=== PATIENT | female | born 1945 | race Caucasian/White ===

== ENCOUNTER 2022-11-22 20:06 | Inpatient (IN) ==
--- NOTE | 2022-11-22 21:03 | Emergency Department Note ---
History of Present Illness General Chief complaint: Shortness of Breath/Dyspnea Stated complaint: SORE RIBS, SOB, LOW OXYGEN, BLOODTHINNERS Time Seen by Provider: 11/22/22 20:41 Source: patient, family (Daughter who is at the bedside), RN notes reviewed and old records reviewed (I did review records she had from the [facility]/outside hospital) Mode of arrival: ambulatory Limitations: no limitations History of Present Illness Maximum Pain Intensity: 4 This patient is a 77-year-old female who has a history of CHF A-fib and COPD, comes in after feeling like her ribs are sore bilaterally she is short of breath . She flew here about a week ago to be with her daughters she is from [place]. She does not typically take inhalers. She says it is mostly dyspnea on exertion she got very lightheaded like she might pass out today after walking she can walk very small amounts before she gets very short of breath. No cough no pleurisy no nausea vomiting no fever or chills she does have chronic lower extremity edema left greater than right which is unchanged from baseline. She does take Lasix and spironolactone. She had a recent echo prior to having cataract surgery and was told that it looked okay. 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 No fall or trauma Home Medications Medication Instructions Recorded Confirmed Type carvedilol 25 mg tablet 25 mg PO BID 11/22/22 11/22/22 History dabigatran etexilate 150 mg 150 mg PO BID 11/22/22 11/22/22 History capsule (Pradaxa) furosemide 40 mg tablet 40 mg PO DAILY 11/22/22 11/22/22 History losartan 50 mg tablet 50 mg PO BID 11/22/22 11/22/22 History spironolactone 25 mg tablet 25 mg PO DAILY 11/22/22 11/22/22 History Allergies Allergy/AdvReac Type Severity Reaction Status Date / Time amiodarone Allergy Severe SHORTNESS Verified 11/22/22 20:39 OF BREATH lisinopril AdvReac Intermediate Cough Verified 11/22/22 20:39 Past Med/Surg History Social History Smoking Status: Former smoker Preferred Language: Occitan Feels Safe at Home: Yes Review of Systems A total of 10 systems reviewed and were otherwise negative Physical Exam Vital Signs Vital Signs - 24 hr 11/22/22 20:11 11/22/22 20:27 11/22/22 20:36 Temperature 35.7 C L Temperature Source Temporal Artery Scan Pulse Rate 76 110 H Pulse Rate [Finger] Pulse Rate from SpO2 Sensor Respiratory Rate 18 Respiratory Effort / Characteristics Non-Labored Spontaneous Respiratory Depth Normal Respiratory Pattern Regular Blood Pressure 119/72 Blood Pressure [Left Arm] Blood Pressure Mean 87 Blood Pressure Mean [Left Arm] Pulse Oximetry 92 93 Oxygen Delivery Method Room Air Room Air Oxygen Flow Rate 0 Sepsis Recent Fever Within 48 Hours No Sepsis New/Unexplained Change in Mental Status No Sepsis Action Taken by Nursing No Action Required 11/22/22 20:29 11/22/22 20:30 11/22/22 20:30 Temperature Temperature Source Pulse Rate 70 70 Pulse Rate [Finger] Pulse Rate from SpO2 Sensor 70 70 Respiratory Rate 15 19 Respiratory Effort / Characteristics Respiratory Depth Respiratory Pattern Blood Pressure 126/98 Blood Pressure [Left Arm] Blood Pressure Mean 105 Blood Pressure Mean [Left Arm] Pulse Oximetry 91 92 Oxygen Delivery Method Oxygen Flow Rate Sepsis Recent Fever Within 48 Hours Sepsis New/Unexplained Change in Mental Status Sepsis Action Taken by Nursing 11/22/22 20:58 11/22/22 20:40 11/22/22 20:50 Temperature Temperature Source Pulse Rate 141 H 70 Pulse Rate [Finger] Pulse Rate from SpO2 Sensor 70 70 Respiratory Rate 15 15 Respiratory Effort / Characteristics Respiratory Depth Respiratory Pattern Blood Pressure Blood Pressure [Left Arm] Blood Pressure Mean Blood Pressure Mean [Left Arm] Pulse Oximetry 98 93 93 Oxygen Delivery Method Room Air Oxygen Flow Rate Sepsis Recent Fever Within 48 Hours Sepsis New/Unexplained Change in Mental Status Sepsis Action Taken by Nursing 11/22/22 21:00 11/22/22 21:00 11/22/22 21:10 Temperature Temperature Source Pulse Rate 80 70 Pulse Rate [Finger] Pulse Rate from SpO2 Sensor 70 70 Respiratory Rate 24 15 Respiratory Effort / Characteristics Respiratory Depth Respiratory Pattern Blood Pressure 113/73 Blood Pressure [Left Arm] Blood Pressure Mean 89 Blood Pressure Mean [Left Arm] Pulse Oximetry 93 93 Oxygen Delivery Method Oxygen Flow Rate Sepsis Recent Fever Within 48 Hours Sepsis New/Unexplained Change in Mental Status Sepsis Action Taken by Nursing 11/22/22 21:20 11/22/22 21:30 11/22/22 21:30 Temperature Temperature Source Pulse Rate 84 70 Pulse Rate [Finger] Pulse Rate from SpO2 Sensor 70 70 Respiratory Rate 15 15 Respiratory Effort / Characteristics Respiratory Depth Respiratory Pattern Blood Pressure 116/82 Blood Pressure [Left Arm] Blood Pressure Mean 90 Blood Pressure Mean [Left Arm] Pulse Oximetry 93 93 Oxygen Delivery Method Oxygen Flow Rate Sepsis Recent Fever Within 48 Hours Sepsis New/Unexplained Change in Mental Status Sepsis Action Taken by Nursing 11/22/22 21:40 11/22/22 21:50 11/22/22 22:00 Temperature Temperature Source Pulse Rate 78 70 Pulse Rate [Finger] Pulse Rate from SpO2 Sensor 71 70 Respiratory Rate 16 15 Respiratory Effort / Characteristics Respiratory Depth Respiratory Pattern Blood Pressure 109/74 Blood Pressure [Left Arm] Blood Pressure Mean 86 Blood Pressure Mean [Left Arm] Pulse Oximetry 91 92 Oxygen Delivery Method Oxygen Flow Rate Sepsis Recent Fever Within 48 Hours Sepsis New/Unexplained Change in Mental Status Sepsis Action Taken by Nursing 11/22/22 22:00 11/22/22 22:10 11/23/22 00:02 Temperature Temperature Source Pulse Rate 70 70 Pulse Rate [Finger] 70 Pulse Rate from SpO2 Sensor 70 70 Respiratory Rate 15 16 18 Respiratory Effort / Characteristics Respiratory Depth Respiratory Pattern Blood Pressure Blood Pressure [Left Arm] 114/71 Blood Pressure Mean Blood Pressure Mean [Left Arm] 85 Pulse Oximetry 93 92 92 Oxygen Delivery Method Room Air Oxygen Flow Rate Sepsis Recent Fever Within 48 Hours Sepsis New/Unexplained Change in Mental Status Sepsis Action Taken by Nursing General: Well developed well nourished older female who appears in no acute distress, breathing comfortably on room air. Normal speech HEENT: Normal cephalic atraumatic. Pupils are equal round and reactive to light. Extraocular movements are intact. Oropharynx is pink with moist mucous membranes. No swelling of the mouth lips or tongue. Neck: Supple with a midline trachea. No meningeal signs or stiffness, no JVD or bruits. No Stridor. Chest: Clear to auscultation bilaterally. No wheezes or rhonchi. No increased work of breathing. Heart: Irregularly irregular rate and rhythm without murmurs or gallops. Abdomen: Soft nontender, nondistended without rebound guarding or rigidity. Extremities: She does have bilateral lower extremity edema, left slightly greater than right. This is baseline according to the patient. She is wearing compression hose. No calf tenderness or assymetry Spine/Back. Non tender to palpation. No CVA tenderness Skin: Good turgor without rashes. Neurologic exam: Cranial nerves two through 12 are intact. Motor and sensation are intact and symmetrical throughout. Course Administered Medications Discontinued Medications Furosemide (Furosemide Inj 20 Mg/2 Ml Vial) 20 mg IV ONE ONE Stop: 11/22/22 22:30 Last Admin: 11/22/22 22:36 Dose: 20 mg Documented By: [facility] Medical Decision Making Differential Diagnosis Acute coronary syndrome, CHF, arrhythmia, anemia, DVT, pneumothorax, pneumonia, COVID Medical Records Attestation: I reviewed the patient's medical records. Home Medications Current Medication List: was personally reviewed by me Laboratory Data Attestation: I reviewed the patient's lab results. 11/22/22 20:35 11/22/22 20:35 Lab Results 11/22/22 11/22/22 11/22/22 Range/Units 20:35 20:35 20:35 WBC 3.13 L (4.8-10.8) K/ul RBC 3.28 L (4.20-5.40) M/uL Hgb 11.6 L (12.0-16.0) g/dl Hct 35.0 L (37.0-47.0) % MCV 106.7 H (80.0-100.0) fL MCH 35.4 H (25.0-34.0) pg MCHC 33.1 (32.0-36.0) g/dL RDW Std Deviation 55.3 H (36.4-46.3) fL RDW Coeff of Patito 14.1 (11.5-14.5) % Plt Count 189 (130-400) K/uL MPV 10.8 (9.4-12.4) fL Immature Gran % (Auto) 0.3 % Neut % (Auto) 48.9 % Lymph % (Auto) 37.4 % [place] % (Auto) 11.2 % Eos % (Auto) 1.9 % Baso % (Auto) 0.3 % Neut # (Auto) 1.53 (1.40-6.50) K/uL Lymph # (Auto) 1.17 L (1.2-3.4) K/uL [place] # (Auto) 0.35 (0.11-0.59) K/uL Eos # (Auto) 0.06 (0-0.50) K/uL Baso # (Auto) 0.01 (0-0.2) K/uL Immature Gran # (Auto) 0.01 (0.01-0.20) K/uL Absolute Nucleated RBC 0.05 (0-0.12) K/uL Nucleated RBC % (auto) 1.6 % PT 13.2 H (9.0-12.0) Seconds INR 1.2 H (0.9-1.1) APTT 45.0 H* (21.0-31.0) Seconds PTT Ratio 1.6 D-Dimer 430 (0-500) ug/L FEU Sodium 139 (136-145) mmol/L Potassium 4.0 (3.5-5.1) mmol/L Chloride 106 (98-107) mmol/L Carbon Dioxide 28 (21-32) mmol/L Anion Gap 5 (3-11) BUN 19 (6-23) mg/dl Creatinine 1.05 (0.6-1.2) mg/dl Est Cr Clr Drug Dosing 54.8 ml/min Est GFR ( Amer) 59.7 ml/min Est GFR (Non-Af Amer) 51.5 ml/min BUN/Creatinine Ratio 18.1 (10-20) Glucose 114 H (70-99(Fasting)) mg/dl Calcium 9.3 (8.6-10.3) mg/dl Total Bilirubin 0.6 (0.2-1.0) mg/dl AST 12 L (13-39) U/L ALT 10 (7-52) U/L Alkaline Phosphatase 74 (34-104) U/L Troponin I High Sens 6.6 (0-14) pg/ml B-Natriuretic Peptide (0-100) pg/ml Total Protein 6.7 (6.0-8.3) gm/dl Albumin 3.9 (3.4-5.0) gm/dl Globulin 2.8 (2.5-4.0) gm/dl Albumin/Globulin Ratio 1.4 (0.9-2) Lipase 14 (11-82) U/L Adenovirus (PCR) (NotDetected) B. pertussis DNA (PCR) (NotDetected) B.parapertussis DNA PCR (NotDetected) C. pneumoniae DNA (PCR) (NotDetected) Coronavirus OC43 (PCR) (NotDetected) Coronavirus HKU1 (PCR) (NotDetected) Coronavirus 229E (PCR) (NotDetected) SARS-CoV-2 (PCR) (NotDetected) Coronavirus NL63 (PCR) (NotDetected) Human Metapneumovir PCR (NotDetected) Influenza Type A (PCR) (NotDetected) Influenza Type B (PCR) (NotDetected) M. pneumoniae (PCR) (NotDetected) Parainfluenza 1 (PCR) (NotDetected) Parainfluenza 2 (PCR) (NotDetected) Parainfluenza 3 (PCR) (NotDetected) Parainfluenza 4 (PCR) (NotDetected) RSV (PCR) (NotDetected) Entero/Rhino (PCR) (NotDetected) 11/22/22 11/22/22 Range/Units 20:35 21:00 WBC (4.8-10.8) K/ul RBC (4.20-5.40) M/uL Hgb (12.0-16.0) g/dl Hct (37.0-47.0) % MCV (80.0-100.0) fL MCH (25.0-34.0) pg MCHC (32.0-36.0) g/dL RDW Std Deviation (36.4-46.3) fL RDW Coeff of Patito (11.5-14.5) % Plt Count (130-400) K/uL MPV (9.4-12.4) fL Immature Gran % (Auto) % Neut % (Auto) % Lymph % (Auto) % [place] % (Auto) % Eos % (Auto) % Baso % (Auto) % Neut # (Auto) (1.40-6.50) K/uL Lymph # (Auto) (1.2-3.4) K/uL [place] # (Auto) (0.11-0.59) K/uL Eos # (Auto) (0-0.50) K/uL Baso # (Auto) (0-0.2) K/uL Immature Gran # (Auto) (0.01-0.20) K/uL Absolute Nucleated RBC (0-0.12) K/uL Nucleated RBC % (auto) % PT (9.0-12.0) Seconds INR (0.9-1.1) APTT (21.0-31.0) Seconds PTT Ratio D-Dimer (0-500) ug/L FEU Sodium (136-145) mmol/L Potassium (3.5-5.1) mmol/L Chloride (98-107) mmol/L Carbon Dioxide (21-32) mmol/L Anion Gap (3-11) BUN (6-23) mg/dl Creatinine (0.6-1.2) mg/dl Est Cr Clr Drug Dosing ml/min Est GFR ( Amer) ml/min Est GFR (Non-Af Amer) ml/min BUN/Creatinine Ratio (10-20) Glucose (70-99(Fasting)) mg/dl Calcium (8.6-10.3) mg/dl Total Bilirubin (0.2-1.0) mg/dl AST (13-39) U/L ALT (7-52) U/L Alkaline Phosphatase (34-104) U/L Troponin I High Sens (0-14) pg/ml B-Natriuretic Peptide 536 H (0-100) pg/ml Total Protein (6.0-8.3) gm/dl Albumin (3.4-5.0) gm/dl Globulin (2.5-4.0) gm/dl Albumin/Globulin Ratio (0.9-2) Lipase (11-82) U/L Adenovirus (PCR) Not Detected (NotDetected) B. pertussis DNA (PCR) Not Detected (NotDetected) B.parapertussis DNA PCR Not Detected (NotDetected) C. pneumoniae DNA (PCR) Not Detected (NotDetected) Coronavirus OC43 (PCR) Not Detected (NotDetected) Coronavirus HKU1 (PCR) Not Detected (NotDetected) Coronavirus 229E (PCR) Not Detected (NotDetected) SARS-CoV-2 (PCR) Not Detected (NotDetected) Coronavirus NL63 (PCR) Not Detected (NotDetected) Human Metapneumovir PCR Not Detected (NotDetected) Influenza Type A (PCR) Not Detected (NotDetected) Influenza Type B (PCR) Not Detected (NotDetected) M. pneumoniae (PCR) Not Detected (NotDetected) Parainfluenza 1 (PCR) Not Detected (NotDetected) Parainfluenza 2 (PCR) Not Detected (NotDetected) Parainfluenza 3 (PCR) Not Detected (NotDetected) Parainfluenza 4 (PCR) Not Detected (NotDetected) RSV (PCR) Not Detected (NotDetected) Entero/Rhino (PCR) Not Detected (NotDetected) Imaging Data Attestation: I personally reviewed and interpreted this imaging study as follows: My Impression: Chest x-raycardiomegaly there is some increased interstitial markings I do think she has a mild degree of CHF. No pneumothorax or focal and Radiologist's Impression: Chest X-Ray 11/22/22 20:55 SINGLE VIEW CHEST CLINICAL HISTORY: Atypical chest pain. FINDINGS: An AP, portable, upright chest radiograph is obtained. No prior studies are available for comparison at the time of dictation. The examination is degraded by portable technique and apical lordotic positioning. A 2-lead cardiac pacemaker is in place. The heart is enlarged noting atherosclerotic calcification of the thoracic aorta. The pulmonary vasculature is noncongested. Chronic interstitial thickening is similar to previous. There is bibasilar scarring/atelectasis. The lungs and pleural spaces are otherwise clear. No pneumothorax is seen. The skeletal structures are osteopenic. The bony thorax is grossly intact. IMPRESSION: 1. Cardiomegaly and cardiac pacemaker without radiographic evidence of cullen estive failure. 2. No airspace consolidation or large pleural effusion is identified. ACT 112: Negative or not required by law. Electronically signed by: Denys Moore M.D. 11/22/2022 10:16 PM ECG Data Attestation: I personally reviewed and interpreted this ECG as follows: Indication: + SOB/dyspnea Rate (beats per minute): 71 Rhythm: + other (Paced rhythm with underlying) ECG Intervals/blocks: + Normal QRS and + Normal QT ECG [place]: + Normal ECG ST segments: + Normal ST segments ECG Findings: no PACs or no PVCs Comparison ECG Date: no prior available MDM Narrative This patient is a 77-year-old female who comes in after having increased dyspnea on exertion she has CHF among other medical problems. IV access was established and an EKG chest x-ray multiple blood testing was obtained. She has no old records here she is from [place] she is here with her daughter who helps give further history. I was however able to look at some of her records through the [facility] portal which she accessed on her phone. She did have an echo done last year which showed a hyperdynamic heart with an EF of greater than 70 she has had congestive heart failure before. She did have LVH and no significant valvular disease. chest x-ray does show some cardiomegaly and I do think she has a mild degree of CHF her BNP is also elevated in the 500 range looking back through her old records her baseline was in the 100s. She does have baseline mildly low white count and mild anemia. Troponin is negative D-dimer is also negative which makes PE unlikely. Bio fire was negative for infectious process. The patient's been very tachypneic with exertion. I do think she has a CHF component I did give her Lasix 20 mg IV. Her oxygen saturations been on the low side in the 90-92 range when I am examining her and she does appear mildly tachypneic. I do think she needs to be admitted/observed. Impression & Plan Acute CHF, FLORES (dyspnea on exertion), Anemia, Pacemaker, A-fib Discharge Plan Visit Data Chief Complaint: Shortness of Breath/Dyspnea Stated Complaint: SORE RIBS, SOB, LOW OXYGEN, BLOODTHINNERS ED Provider: Darian Perez Discharge Problem: Acute CHF, FLORES (dyspnea on exertion), Anemia, Pacemaker, A-fib Forms Stand Alone Forms: My [facility] [place] Prescriptions Prescriptions: No Action carvedilol 25 mg Tablet 25 mg PO BID Rx Instructions: must administer with a meal/food losartan 50 mg tablet 50 mg PO BID furosemide 40 mg tablet 40 mg PO DAILY spironolactone 25 mg tablet 25 mg PO DAILY dabigatran etexilate [Pradaxa] 150 mg capsule 150 mg PO BID Referrals Referrals: PCP,NO [Physician] -
[2022-11-22 21:22] LABS: Basophils # (auto) 0.01 K/uL (0-0.2); Basophils % (auto) 0.3 %; Eosinophils # (auto) 0.06 K/uL (0-0.50); Eosinophils % (auto) 1.9 %; Hemoglobin 11.6 g/dl (12.0-16.0); Immature Granulocytes # (auto) 0.01 K/uL (0.01-0.20); Immature Granulocytes % (auto) 0.3 %; Lymphocytes # (auto) 1.17 K/uL (1.2-3.4); Lymphocytes % (auto) 37.4 %; Mean Corpuscular Hemoglobin 35.4 pg (25.0-34.0); Mean Corpuscular Hgb Conc 33.1 g/dL (32.0-36.0); Mean Corpuscular Volume 106.7 fL (80.0-100.0); Mean Platelet Volume 10.8 fL (9.4-12.4); Monocytes # (auto) 0.35 K/uL (0.11-0.59); Monocytes % (auto) 11.2 %; Neutrophils # (auto) 1.53 K/uL (1.40-6.50); Neutrophils % (auto) 48.9 %; Nucleated RBC # (auto) 0.05 K/uL (0-0.12); Nucleated RBC % (auto) 1.6 %; Platelet Count 189 K/uL (130-400); RDW Coefficient of Variation 14.1 % (11.5-14.5); RDW Standard Deviation 55.3 fL (36.4-46.3); Red Blood Count 3.28 M/uL (4.20-5.40); White Blood Count 3.13 K/ul (4.8-10.8)
[2022-11-22 21:43] LABS: Albumin Globulin Ratio 1.4 (0.9-2); Albumin Level 3.9 gm/dl (3.4-5.0); BUN Creatinine Ratio 18.1 (10-20); Bilirubin,Total 0.6 mg/dl (0.2-1.0); Calcium 9.3 mg/dl (8.6-10.3); Creatinine Clr Calc Pharmacy 54.8 ml/min; Est GFR (African American) 59.7 ml/min; Est GFR (Non-African American) 51.5 ml/min; Globulin 2.8 gm/dl (2.5-4.0); Total Protein 6.7 gm/dl (6.0-8.3)
[2022-11-22 21:47] LABS: D Dimer 430 ug/L FEU (0-500); INR 1.2 (0.9-1.1); Partial Thromboplastin Ratio 1.6; Prothrombin Time 13.2 Seconds (9.0-12.0)
[2022-11-22 21:49] LABS: Troponin I High Sensitivity 6.6 pg/ml (0-14)
[2022-11-22 22:14] LABS: Adenovirus PCR Not Detected (NotDetected); Bordetella parapertussis PCR Not Detected (NotDetected); Bordetella pertussis PCR Not Detected (NotDetected); Chlamydia pneumoniae PCR Not Detected (NotDetected); Coronavirus 229E PCR Not Detected (NotDetected); Coronavirus CoV-2 (COVID19)PCR Not Detected (NotDetected); Coronavirus HKU1 PCR Not Detected (NotDetected); Coronavirus NL63 PCR Not Detected (NotDetected); Coronavirus OC43PCR Not Detected (NotDetected); Human Metapneumovirus PCR Not Detected (NotDetected); Influenza A PCR Not Detected (NotDetected); Influenza B PCR Not Detected (NotDetected); Mycoplasma pneumoniae PCR Not Detected (NotDetected); Parainfluenza Virus 1 PCR Not Detected (NotDetected); Parainfluenza Virus 2 PCR Not Detected (NotDetected); Parainfluenza Virus 3 PCR Not Detected (NotDetected); Parainfluenza Virus 4 PCR Not Detected (NotDetected); Respiratory Syncytial VirusPCR Not Detected (NotDetected); Rhinovirus/Enterovirus PCR Not Detected (NotDetected)
--- NOTE | 2022-11-22 22:17 | XRay Report ---
SINGLE VIEW CHEST CLINICAL HISTORY: Atypical chest pain. FINDINGS: An AP, portable, upright chest radiograph is obtained. No prior studies are available for c omparison at the time of dictation. The examination is degraded by portable technique and apical lord otic positioning. A 2-lead cardiac pacemaker is in place. The heart is enlarged noting atheroscleroti c calcification of the thoracic aorta. The pulmonary vasculature is noncongested. Chronic interstitia l thickening is similar to previous. There is bibasilar scarring/atelectasis. The lungs and pleural s paces are otherwise clear. No pneumothorax is seen. The skeletal structures are osteopenic. The bony thorax is grossly intact. IMPRESSION: 1. Cardiomegaly and cardiac pacemaker without radiographic evidence of congestive failure. 2. No airspace consolidation or large pleural effusion is identified. ACT 112: Negative or not required by law. Electronically signed by: Denys Moore M.D. 11/22/2022 10:16 PM
[2022-11-22] MEDS ORDERED: FUROSEMIDE INJ 20 MG/2 ML VIAL IV ONE (22:29)
--- NOTE | 2022-11-23 00:11 | History & Physical Report ---
Date of Service November 22, 2022 Assessment & Plan (1) Acute CHF: Plan: 77-year-old female who lives in [facility] [place] flew 1 week back to [place] to her daughter's place with past medical significant for CHF, A-fib status post pacemaker, possible COPD, history of tobacco abuse, hypertension, history of pneumonia presents with shortness of breath Shortness of breath Possible acute CHF BNP 536 Has lower extremity edema Patient states echo in March EF was 70% We will follow repeat echo Received IV Lasix 20 mg in the ER We will place on IV Lasix 40 mg daily and hold home p.o. Lasix We will continue home spironolactone Daily weights and I's and O's Monitor on telemetry Consult cardiology in a.m. History of tobacco abuse Possible COPD Not on any inhalers No wheezing on exam Respiratory BioFire was unremarkable We will place on nebs as needed History of A-fib S/p pacemaker Continue Coreg and Pradaxa Hypertension Continue Coreg and losartan and diuretics We will monitor the blood pressure DVT prophylaxis on Pradaxa Disposition admit to telemetry floor Full code History of Present Illness Chief Complaint: Shortness of breath Primary Care Provider: JUANCARLOS RANGEL 77-year-old female who lives in [facility] [place] flew 1 week back to [place] to her daughter's place with past medical significant for CHF, A-fib status post pacemaker, possible COPD, history of tobacco abuse, hypertension, history of pneumonia presents with shortness of breath. Patient since last 3 to 4 days she getting progressively short of breath even walking to her car making her short of breath which prompted her to come to the ER today. She has swelling in the legs chronically left greater than right and says no change in the swelling. General ambulates without any support. Denies any cough or fever. Sometimes get runny nose. No sore throat. No headache. Feels slight dizziness. Vision is okay. No nausea or abdominal pain. Normal bowel and bladder movements. Currently resting comfortably and hemodynamically stable. Likes to be discharged tomorrow. Past medical history as mentioned above Past surgical history tonsillectomy, cataracts and pacemaker placement. Social history quit smoking 7 years ago. Drinks 1 to 2 glasses once daily. Family history father had CHF. Mother lived up to age more than 100 years. Allergies Allergy/AdvReac Type Severity Reaction Status Date / Time amiodarone Allergy Severe SHORTNESS Verified 11/22/22 20:39 OF BREATH lisinopril AdvReac Intermediate Cough Verified 11/22/22 20:39 Home Medications Medication Instructions Recorded Confirmed Type carvedilol 25 mg tablet 25 mg PO BID 11/22/22 11/22/22 History dabigatran etexilate 150 mg 150 mg PO BID 11/22/22 11/22/22 History capsule (Pradaxa) furosemide 40 mg tablet 40 mg PO DAILY 11/22/22 11/22/22 History losartan 50 mg tablet 50 mg PO BID 11/22/22 11/22/22 History spironolactone 25 mg tablet 25 mg PO DAILY 11/22/22 11/22/22 History Past Med/Surg History Social History Smoking Status: Former smoker Preferred Language: [place] Feels Safe at Home: Yes Review of Systems Review of Systems: All systems reviewed & are unremarkable except as noted in Subjective Physical Exam Physical Exam: General-Not in distress Head- atraumatic Eyes- PERRL ENT- oropharynx clear Neck- supple, no JVD, Lungs- clear to auscultation and percussion, mild bibasilar crackles Heart- regular rate and rhythm; no murmur, no gallop. Abdomen- normal bowel sounds, soft, nontender, no distension. Extremities- b/l lower extremity edema present more on left leg than right leg. No erythema seen. Neuro- alert, oriented x 3; PERRL no facial palsy; no dysarthria; insight ok, obeys commands moves extremities Skin- warm & dry Results & Data Results & Data Vital Signs (Past 12 Hours) Vital Signs Temp Pulse Resp BP Pulse Ox O2 Del Method O2 Flow Rate 11/22/22 22:10 70 16 92 11/22/22 22:00 70 15 93 11/22/22 22:00 109/74 11/22/22 21:50 70 15 92 11/22/22 21:40 78 16 91 11/22/22 21:30 70 15 93 11/22/22 21:30 116/82 11/22/22 21:20 84 15 93 11/22/22 21:10 70 15 93 11/22/22 21:00 80 24 93 11/22/22 21:00 113/73 11/22/22 20:50 70 15 93 11/22/22 20:40 141 H 15 93 11/22/22 20:58 98 Room Air 11/22/22 20:30 70 19 92 11/22/22 20:30 126/98 11/22/22 20:29 70 15 91 11/22/22 20:36 110 H 11/22/22 20:27 93 Room Air 0 11/22/22 20:11 35.7 C L 76 18 119/72 92 Room Air Diagnostic Findings Laboratory Results WBC 3.13 K/ul (4.8-10.8) L 11/22/22 20:35 RBC 3.28 M/uL (4.20-5.40) L 11/22/22 20:35 Hgb 11.6 g/dl (12.0-16.0) L 11/22/22 20:35 Hct 35.0 % (37.0-47.0) L 11/22/22 20:35 MCV 106.7 fL (80.0-100.0) H 11/22/22 20:35 MCH 35.4 pg (25.0-34.0) H 11/22/22 20:35 MCHC 33.1 g/dL (32.0-36.0) 11/22/22 20:35 RDW Std Deviation 55.3 fL (36.4-46.3) H 11/22/22 20:35 RDW Coeff of Patito 14.1 % (11.5-14.5) 11/22/22 20:35 Plt Count 189 K/uL (130-400) 11/22/22 20:35 MPV 10.8 fL (9.4-12.4) 11/22/22 20:35 Immature Gran % (Auto) 0.3 % 11/22/22 20:35 Neut % (Auto) 48.9 % 11/22/22 20:35 Lymph % (Auto) 37.4 % 11/22/22 20:35 [place] % (Auto) 11.2 % 11/22/22 20:35 Eos % (Auto) 1.9 % 11/22/22 20:35 Baso % (Auto) 0.3 % 11/22/22 20:35 Neut # (Auto) 1.53 K/uL (1.40-6.50) 11/22/22 20:35 Lymph # (Auto) 1.17 K/uL (1.2-3.4) L 11/22/22 20:35 [place] # (Auto) 0.35 K/uL (0.11-0.59) 11/22/22 20:35 Eos # (Auto) 0.06 K/uL (0-0.50) 11/22/22 20:35 Baso # (Auto) 0.01 K/uL (0-0.2) 11/22/22 20:35 Immature Gran # (Auto) 0.01 K/uL (0.01-0.20) 11/22/22 20:35 Absolute Nucleated RBC 0.05 K/uL (0-0.12) 11/22/22 20:35 Nucleated RBC % (auto) 1.6 % 11/22/22 20:35 PT 13.2 Seconds (9.0-12.0) H 11/22/22 20:35 INR 1.2 (0.9-1.1) H 11/22/22 20:35 APTT 45.0 Seconds (21.0-31.0) H* 11/22/22 20:35 PTT Ratio 1.6 11/22/22 20:35 D-Dimer 430 ug/L FEU (0-500) 11/22/22 20:35 Sodium 139 mmol/L (136-145) 11/22/22 20:35 Potassium 4.0 mmol/L (3.5-5.1) 11/22/22 20:35 Chloride 106 mmol/L (98-107) 11/22/22 20:35 Carbon Dioxide 28 mmol/L (21-32) 11/22/22 20:35 Anion Gap 5 (3-11) 11/22/22 20:35 BUN 19 mg/dl (6-23) 11/22/22 20:35 Creatinine 1.05 mg/dl (0.6-1.2) 11/22/22 20:35 Est Cr Clr Drug Dosing 54.8 ml/min 11/22/22 20:35 Est GFR ( Amer) 59.7 ml/min 11/22/22 20:35 Est GFR (Non-Af Amer) 51.5 ml/min 11/22/22 20:35 BUN/Creatinine Ratio 18.1 (10-20) 11/22/22 20:35 Glucose 114 mg/dl (70-99(Fasting)) H 11/22/22 20:35 Calcium 9.3 mg/dl (8.6-10.3) 11/22/22 20:35 Total Bilirubin 0.6 mg/dl (0.2-1.0) 11/22/22 20:35 AST 12 U/L (13-39) L 11/22/22 20:35 ALT 10 U/L (7-52) 11/22/22 20:35 Alkaline Phosphatase 74 U/L (34-104) 11/22/22 20:35 Troponin I High Sens 6.6 pg/ml (0-14) 11/22/22 20:35 B-Natriuretic Peptide 536 pg/ml (0-100) H 11/22/22 20:35 Total Protein 6.7 gm/dl (6.0-8.3) 11/22/22 20:35 Albumin 3.9 gm/dl (3.4-5.0) 11/22/22 20:35 Globulin 2.8 gm/dl (2.5-4.0) 11/22/22 20:35 Albumin/Globulin Ratio 1.4 (0.9-2) 11/22/22 20:35 Lipase 14 U/L (11-82) 11/22/22 20:35 Adenovirus (PCR) Not Detected (NotDetected) 11/22/22 21:00 B. pertussis DNA (PCR) Not Detected (NotDetected) 11/22/22 21:00 B.parapertussis DNA PCR Not Detected (NotDetected) 11/22/22 21:00 C. pneumoniae DNA (PCR) Not Detected (NotDetected) 11/22/22 21:00 Coronavirus OC43 (PCR) Not Detected (NotDetected) 11/22/22 21:00 Coronavirus HKU1 (PCR) Not Detected (NotDetected) 11/22/22 21:00 Coronavirus 229E (PCR) Not Detected (NotDetected) 11/22/22 21:00 SARS-CoV-2 (PCR) Not Detected (NotDetected) 11/22/22 21:00 Coronavirus NL63 (PCR) Not Detected (NotDetected) 11/22/22 21:00 Human Metapneumovir PCR Not Detected (NotDetected) 11/22/22 21:00 Influenza Type A (PCR) Not Detected (NotDetected) 11/22/22 21:00 Influenza Type B (PCR) Not Detected (NotDetected) 11/22/22 21:00 M. pneumoniae (PCR) Not Detected (NotDetected) 11/22/22 21:00 Parainfluenza 1 (PCR) Not Detected (NotDetected) 11/22/22 21:00 Parainfluenza 2 (PCR) Not Detected (NotDetected) 11/22/22 21:00 Parainfluenza 3 (PCR) Not Detected (NotDetected) 11/22/22 21:00 Parainfluenza 4 (PCR) Not Detected (NotDetected) 11/22/22 21:00 RSV (PCR) Not Detected (NotDetected) 11/22/22 21:00 Entero/Rhino (PCR) Not Detected (NotDetected) 11/22/22 21:00 Impressions Chest X-Ray 11/22/22 20:55 SINGLE VIEW CHEST CLINICAL HISTORY: Atypical chest pain. FINDINGS: An AP, portable, upright chest radiograph is obtained. No prior studies are available for comparison at the time of dictation. The examination is degraded by portable technique and apical lordotic positioning. A 2-lead cardiac pacemaker is in place. The heart is enlarged noting atherosclerotic calcification of the thoracic aorta. The pulmonary vasculature is noncongested. Chronic interstitial thickening is similar to previous. There is bibasilar scarring/atelectasis. The lungs and pleural spaces are otherwise clear. No pneumothorax is seen. The skeletal structures are osteopenic. The bony thorax is grossly intact. IMPRESSION: 1. Cardiomegaly and cardiac pacemaker without radiographic evidence of congestive failure. 2. No airspace consolidation or large pleural effusion is identified. ACT 112: Negative or not required by law. Electronically signed by: Denys Moore M.D. 11/22/2022 10:16 PM ECG Additional Comments: ECG ventricular paced rhythm at the rate of 71 Code Status & VTE Plan VTE Prophylaxis Plan VTE Prophylaxis will be ordered: Yes
[2022-11-23] MEDS ORDERED: ACETAMINOPHEN 325 MG TAB PO PRN (00:35)
[2022-11-23] MEDS ORDERED: NITROGLYCERIN SL 0.4 MG/TAB TAB SL PRN (00:35)
[2022-11-23 06:26] LABS: Basophils # (auto) 0.01 K/uL (0-0.2); Basophils % (auto) 0.2 %; Eosinophils # (auto) 0.05 K/uL (0-0.50); Eosinophils % (auto) 0.9 %; Hematocrit (blood only) 34.1 % (37.0-47.0); Hemoglobin 11.1 g/dl (12.0-16.0); Immature Granulocytes # (auto) 0.02 K/uL (0.01-0.20); Immature Granulocytes % (auto) 0.4 %; Lymphocytes # (auto) 1.17 K/uL (1.2-3.4); Lymphocytes % (auto) 22.2 %; Mean Corpuscular Hemoglobin 35.5 pg (25.0-34.0); Mean Corpuscular Hgb Conc 32.6 g/dL (32.0-36.0); Mean Corpuscular Volume 108.9 fL (80.0-100.0); Mean Platelet Volume 10.8 fL (9.4-12.4); Monocytes % (auto) 9.5 %; Neutrophils # (auto) 3.52 K/uL (1.40-6.50); Neutrophils % (auto) 66.8 %; Nucleated RBC # (auto) 0.03 K/uL (0-0.12); Nucleated RBC % (auto) 0.6 %; Platelet Count 176 K/uL (130-400); RDW Coefficient of Variation 14.4 % (11.5-14.5); RDW Standard Deviation 57.2 fL (36.4-46.3); Red Blood Count 3.13 M/uL (4.20-5.40); White Blood Count 5.27 K/ul (4.8-10.8)
[2022-11-23 06:36] LABS: BUN Creatinine Ratio 17.9 (10-20); Calcium 9.1 mg/dl (8.6-10.3); Creatinine Clr Calc Pharmacy 54.3 ml/min; Est GFR (African American) 59.1 ml/min; Magnesium 1.8 mg/dl (1.7-2.4); Potassium 4.3 mmol/L (3.5-5.1)
[2022-11-23 06:40] LABS: Troponin I High Sensitivity 5.7 pg/ml (0-14)
[2022-11-23] MEDS: carvediloL 25 MG TAB PO SCH ×2 (08:50→16:43)
[2022-11-23] MEDS: DABIGATRAN ETEXILATE 75 MG CAP PO SCH ×2 (08:50→19:53)
[2022-11-23] MEDS: LOSARTAN POTASSIUM 50 MG TAB PO SCH ×2 (09:00→19:53)
[2022-11-23] MEDS ORDERED: SPIRONOLACTONE 25 MG TAB PO SCH ×2 (09:00→21:00)
[2022-11-23] MEDS ORDERED: FUROSEMIDE 40 MG/4 ML VIAL IV SCH ×2 (09:00→17:00)
--- NOTE | 2022-11-23 11:13 | Cardiology Consultation ---
Date of Consultation November 23, 2022 Assessment & Plan (1) Acute heart failure with preserved ejection fraction: (2) Severe tricuspid regurgitation: (3) Pulmonary HTN: (4) Chronic atrial fibrillation: (5) Pulmonary fibrosis: Plan 77-year-old female present to the emergency department with progressive shortness of breath, edema, and weight gain. Echocardiogram with preserved LV systolic function, severe tricuspid regurgitation, and moderate to severe pulmonary hypertension. Chronicity of echocardiographic findings unknown as patient resides in [facility]. She reports normal left ventricular ejection fraction per most recent studies although she was unaware of any valvular regurgitation. Tricuspid regurgitation may be related to ventricular pacemaker lead position. I suspect shortness of breath is multifactorial including acute decompensated heart failure with preserved ejection fraction in addition to underlying pulmonary fibrosis. Recommend furosemide 40 mg IV twice daily. Continue spironolactone. Monitor daily weight, fluid balance, electrolytes, and GFR. Continue carvedilol, losartan, and Pradaxa as ordered. Interrogate pacemaker. History of Present Illness Reason for Consultation: SOB, CHF Requesting Physician: Dr. Avila Attending Physician: Deyvi Ward MD History of Present Illness 77-year-old female present to the emergency department with shortness of breath. 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 Resides in [facility]. Visiting her children and grandchildren here in [place]. Reports paroxysmal atrial fibrillation status post AV node ablation and pacemaker insertion due to poorly controlled heart rate. 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 Over the past week she has noted bloating, shortness of breath, and lower extremity edema with 5 pound weight gain. Reports soreness involving her bilateral ribs. No cough or sputum production. Compliant with medications noted below. She has received 2 doses of intravenous furosemide, 20 mg, and 40 mg since admission. Fluid balance has not been recorded accurately. Telemetry reveals a ventricular paced rhythm. Chest x-ray with evidence of possible pulmonary fibrosis. BNP mildly elevated. Preliminary review of bedside 2D transthoracic echocardiogram demonstrates preserved LV systolic function with severe tricuspid regurgitation and moderate pulmonary hypertension. Allergies Allergy/AdvReac Type Severity Reaction Status Date / Time amiodarone Allergy Severe SHORTNESS Verified 11/22/22 20:39 OF BREATH lisinopril AdvReac Intermediate Cough Verified 11/22/22 20:39 Home Medications Medication Instructions Recorded Confirmed Type carvedilol 25 mg tablet 25 mg PO BID 11/22/22 11/22/22 History dabigatran etexilate 150 mg 150 mg PO BID 11/22/22 11/22/22 History capsule (Pradaxa) furosemide 40 mg tablet 40 mg PO DAILY 11/22/22 11/22/22 History losartan 50 mg tablet 50 mg PO BID 11/22/22 11/22/22 History spironolactone 25 mg tablet 25 mg PO DAILY 11/22/22 11/22/22 History Patient History Social History Smoking Status: Former smoker Hx Alcohol Use: Yes Alcohol type: wine Hx Substance Use: No Preferred Language: Peruvian Communication Ability: Effective Visual Merchandising Manager Required: No Beliefs That Will Affect Care: Faith Current Living Situation: Alone Feels Safe at Home: Yes Safety Concerns: Feels Safe At This Time Review of Systems Review of Systems: All systems reviewed & are unremarkable except as noted in Subjective Physical Exam Constitutional: well nourished; no acute distress Respiratory: normal respiratory effort; no respiratory distress Auscultation: no crackles, no rales, no rhonchi and no wheezes Cardiovascular: Rate/Rhythm: regular rate and regular rhythm Heart Sounds: normal S1, normal S2 and + murmur (1/6 mid systolic murmur heard at the left sternal border.) Vessels: no JVD Extremities: + edema (1+ bilateral pretibial edema with stasis changes. L>R) Gastrointestinal (Abdomen): Inspection/Auscultation: normal bowel sounds; abdomen not distended Percussion/Palpation: abdomen soft; abdomen nontender, no guarding and abdomen not rigid Neurologic: CN's II-XI intact bilaterally and moves all extremities Psychiatric: A+Ox3, euthymic affect Results & Data Vital Signs (Past 12 Hours) Vital Signs Pulse Pulse Resp BP BP Pulse Ox Pulse Ox 11/23/22 07:21 94 11/23/22 07:21 70 20 139/86 94 11/23/22 07:04 70 11/23/22 06:00 71 23 89 L 11/23/22 06:00 126/73 11/23/22 05:50 70 27 H 91 11/23/22 05:40 70 27 H 92 11/23/22 05:30 70 21 91 11/23/22 05:20 70 24 93 11/23/22 05:10 70 27 H 92 11/23/22 05:00 70 24 89 L 11/23/22 04:50 70 22 91 11/23/22 04:40 70 28 H 93 11/23/22 04:30 70 23 92 11/23/22 04:20 70 21 89 L 11/23/22 04:10 70 26 H 92 11/23/22 04:00 70 28 H 92 11/23/22 03:50 70 20 92 11/23/22 03:40 70 19 93 11/23/22 03:30 70 20 94 11/23/22 03:20 70 23 95 11/23/22 03:10 77 30 H 11/23/22 03:00 70 22 11/23/22 02:50 70 29 H 91 11/23/22 02:40 71 25 H 92 11/23/22 02:30 70 25 H 92 11/23/22 02:20 70 22 93 11/23/22 02:10 70 27 H 89 L 11/23/22 02:02 77 31 H 87 L 11/23/22 01:50 70 22 90 11/23/22 01:40 70 22 91 11/23/22 01:30 70 22 92 11/23/22 01:20 70 24 94 11/23/22 01:10 85 28 H 94 11/23/22 01:00 71 30 H 93 11/23/22 01:00 129/79 11/23/22 00:50 70 24 11/23/22 00:40 70 31 H 91 11/23/22 00:30 70 21 91 11/23/22 00:30 124/76 11/23/22 00:20 70 30 H 92 11/23/22 00:10 70 35 H 91 11/23/22 00:02 114/71 11/23/22 00:02 70 25 H 91 11/23/22 00:00 70 13 92 11/22/22 23:50 80 15 93 11/22/22 23:40 70 21 91 11/22/22 23:30 70 35 H 11/22/22 23:20 71 27 H 11/23/22 00:02 70 18 114/71 92 O2 Del Method O2 Del Method 11/23/22 07:21 Room Air 11/23/22 07:21 Room Air 11/23/22 07:04 11/23/22 06:00 11/23/22 06:00 11/23/22 05:50 11/23/22 05:40 11/23/22 05:30 11/23/22 05:20 11/23/22 05:10 11/23/22 05:00 11/23/22 04:50 11/23/22 04:40 11/23/22 04:30 11/23/22 04:20 11/23/22 04:10 11/23/22 04:00 11/23/22 03:50 11/23/22 03:40 11/23/22 03:30 11/23/22 03:20 11/23/22 03:10 11/23/22 03:00 11/23/22 02:50 11/23/22 02:40 11/23/22 02:30 11/23/22 02:20 11/23/22 02:10 11/23/22 02:02 11/23/22 01:50 11/23/22 01:40 11/23/22 01:30 11/23/22 01:20 11/23/22 01:10 11/23/22 01:00 11/23/22 01:00 11/23/22 00:50 11/23/22 00:40 11/23/22 00:30 11/23/22 00:30 11/23/22 00:20 11/23/22 00:10 11/23/22 00:02 11/23/22 00:02 11/23/22 00:00 11/22/22 23:50 11/22/22 23:40 11/22/22 23:30 11/22/22 23:20 11/23/22 00:02 Room Air Laboratory Results Cardiac Enzymes 11/22/22 11/22/22 11/23/22 Range/Units 20:35 20:35 06:04 AST 12 L (13-39) U/L Troponin I High Sens 6.6 5.7 (0-14) pg/ml B-Natriuretic Peptide 536 H (0-100) pg/ml Coagulation 11/22/22 11/22/22 Range/Units 20:35 20:35 PT 13.2 H (9.0-12.0) Seconds APTT 45.0 H* (21.0-31.0) Seconds B-Natriuretic Peptide 536 H (0-100) pg/ml CBC 11/22/22 11/23/22 Range/Units 20:35 06:04 WBC 3.13 L 5.27 (4.8-10.8) K/ul RBC 3.28 L 3.13 L (4.20-5.40) M/uL Hgb 11.6 L 11.1 L (12.0-16.0) g/dl Hct 35.0 L 34.1 L (37.0-47.0) % Plt Count 189 176 (130-400) K/uL Neut # (Auto) 1.53 3.52 (1.40-6.50) K/uL Lymph # (Auto) 1.17 L 1.17 L (1.2-3.4) K/uL [place] # (Auto) 0.35 0.50 (0.11-0.59) K/uL Eos # (Auto) 0.06 0.05 (0-0.50) K/uL Baso # (Auto) 0.01 0.01 (0-0.2) K/uL Comprehensive Metabolic Panel 11/22/22 11/23/22 Range/Units 20:35 06:04 Sodium 139 140 (136-145) mmol/L Potassium 4.0 4.3 (3.5-5.1) mmol/L Chloride 106 106 (98-107) mmol/L Carbon Dioxide 28 30 (21-32) mmol/L BUN 19 19 (6-23) mg/dl Creatinine 1.05 1.06 (0.6-1.2) mg/dl Glucose 114 H 104 H (70-99(Fasting)) mg/dl Calcium 9.3 9.1 (8.6-10.3) mg/dl AST 12 L (13-39) U/L ALT 10 (7-52) U/L Alkaline Phosphatase 74 (34-104) U/L Total Protein 6.7 (6.0-8.3) gm/dl Albumin 3.9 (3.4-5.0) gm/dl Intake and Output 11/22/22 11/23/22 11/23/22 22:59 06:59 14:59 Other: Weight 98 kg 98 kg Weight Measurement Method Chair Scale Built in [facility] Patient Weight 11/24/22 06:59 Weight 98 kg
--- NOTE | 2022-11-23 14:06 | Hospitalist Progress Note ---
Date of Service November 23, 2022 Assessment & Plan (1) Acute CHF: Plan: 77-year-old female who lives in [facility] flew 1 week back to [employer] to her daughter's place with past medical significant for CHF, A-fib status post pacemaker, possible COPD, history of tobacco abuse, hypertension, history of pneumonia presents with shortness of breath Acute on chronic diastolic heart failure 77-year-old female with history of CHF, A-fib with pacemaker presented to the ED with shortness of breath. BNP 536 Chest x-ray personally reviewed from admission; consistent with pulmonary edema. EKG from admission personally reviewed; ventricular paced rhythm. Echocardiogram results reviewed; EF of 60 to 65%. Severe tricuspid regurgitation. Estimated systolic pulmonary pressure of 60 mmHg. Dilated IVC. Cardiology on board; IV diuretics with Lasix 40 mg twice a day Strict input and output monitoring. Daily weights. History of tobacco abuse Possible COPD Not on any inhalers No wheezing on exam Respiratory BioFire was unremarkable We will place on nebs as needed History of A-fib S/p pacemaker Continue Coreg and Pradaxa Hypertension Continue Coreg and losartan and diuretics We will monitor the blood pressure DVT prophylaxis on Pradaxa Disposition admit to telemetry floor Full code Time spent evaluating patient, direct bedside care, chart review, placing orders, interpretation of diagnostic studies, discussion with consultants, patient, and family members, as well as other required patient management activities is 60 minutes. Please note the above document was generated using voice recognition software. It may contain grammatical, syntax or spelling errors. Any formal questions or concerns about the content, text or information contained within the body of this dictation should be directly addressed to the provider for clarification Admission and Anticipated Discharge Date Admission Date: November 22, 2022 Subjective Seen and examined at bedside. She continues to report shortness of breath at rest. Telemetry showed paced rhythm. Review of Systems Review of Systems: All systems reviewed & are unremarkable except as noted in Subjective Physical Exam Physical Exam: Constitutional: WD/WN, vitals as above, NAD, sitting up in bed, pleasant, conversing easily Respiratory: Bilateral basilar crackle heard. Cardiovascular: RRR, no murmur, no edema Vessels: no JVD or carotid bruit Chest: normal inspection of chest Abdomen: normal bowel sounds, soft, nontender, no hepatosplenomegaly Musculoskeletal: no cyanosis or clubbing, extremities motor strength 5/5. Pitting edema on the left leg. Skin: no rashes, warm and dry normal turgor Neurologic: PERRL, EOMI, accommodation nl, no face palsy, no dysarthria CN's II- XI intact bilaterally and moves all extremities Psychiatric: A+Ox3, euthymic affect Results & Data Results & Data Vital Signs (Past 12 Hours) Vital Signs Temp Pulse Pulse Resp BP BP Pulse Ox 11/23/22 13:44 36.8 C 78 18 144/89 H 95 11/23/22 07:21 11/23/22 07:21 70 20 139/86 94 11/23/22 07:04 70 11/23/22 06:00 71 23 89 L 11/23/22 06:00 126/73 11/23/22 05:50 70 27 H 91 11/23/22 05:40 70 27 H 92 11/23/22 05:30 70 21 91 11/23/22 05:20 70 24 93 11/23/22 05:10 70 27 H 92 11/23/22 05:00 70 24 89 L 11/23/22 04:50 70 22 91 11/23/22 04:40 70 28 H 93 11/23/22 04:30 70 23 92 11/23/22 04:20 70 21 89 L 11/23/22 04:10 70 26 H 92 11/23/22 04:00 70 28 H 92 11/23/22 03:50 70 20 92 11/23/22 03:40 70 19 93 11/23/22 03:30 70 20 94 11/23/22 03:20 70 23 95 11/23/22 03:10 77 30 H 11/23/22 03:00 70 22 11/23/22 02:50 70 29 H 91 11/23/22 02:40 71 25 H 92 11/23/22 02:30 70 25 H 92 11/23/22 02:20 70 22 93 11/23/22 02:10 70 27 H 89 L Pulse Ox O2 Del Method O2 Del Method 11/23/22 13:44 Room Air 11/23/22 07:21 94 Room Air 11/23/22 07:21 Room Air 11/23/22 07:04 11/23/22 06:00 11/23/22 06:00 11/23/22 05:50 11/23/22 05:40 11/23/22 05:30 11/23/22 05:20 11/23/22 05:10 11/23/22 05:00 11/23/22 04:50 11/23/22 04:40 11/23/22 04:30 11/23/22 04:20 11/23/22 04:10 11/23/22 04:00 11/23/22 03:50 11/23/22 03:40 11/23/22 03:30 11/23/22 03:20 11/23/22 03:10 11/23/22 03:00 11/23/22 02:50 11/23/22 02:40 11/23/22 02:30 11/23/22 02:20 11/23/22 02:10 Laboratory Results Laboratory Results WBC 5.27 K/ul (4.8-10.8) 11/23/22 06:04 RBC 3.13 M/uL (4.20-5.40) L 11/23/22 06:04 Hgb 11.1 g/dl (12.0-16.0) L 11/23/22 06:04 Hct 34.1 % (37.0-47.0) L 11/23/22 06:04 MCV 108.9 fL (80.0-100.0) H 11/23/22 06:04 MCH 35.5 pg (25.0-34.0) H 11/23/22 06:04 MCHC 32.6 g/dL (32.0-36.0) 11/23/22 06:04 RDW Std Deviation 57.2 fL (36.4-46.3) H 11/23/22 06:04 RDW Coeff of Patito 14.4 % (11.5-14.5) 11/23/22 06:04 Plt Count 176 K/uL (130-400) 11/23/22 06:04 MPV 10.8 fL (9.4-12.4) 11/23/22 06:04 Immature Gran % (Auto) 0.4 % 11/23/22 06:04 Neut % (Auto) 66.8 % 11/23/22 06:04 Lymph % (Auto) 22.2 % 11/23/22 06:04 Lamar % (Auto) 9.5 % 11/23/22 06:04 Eos % (Auto) 0.9 % 11/23/22 06:04 Baso % (Auto) 0.2 % 11/23/22 06:04 Neut # (Auto) 3.52 K/uL (1.40-6.50) 11/23/22 06:04 Lymph # (Auto) 1.17 K/uL (1.2-3.4) L 11/23/22 06:04 Lamar # (Auto) 0.50 K/uL (0.11-0.59) 11/23/22 06:04 Eos # (Auto) 0.05 K/uL (0-0.50) 11/23/22 06:04 Baso # (Auto) 0.01 K/uL (0-0.2) 11/23/22 06:04 Immature Gran # (Auto) 0.02 K/uL (0.01-0.20) 11/23/22 06:04 Absolute Nucleated RBC 0.03 K/uL (0-0.12) 11/23/22 06:04 Nucleated RBC % (auto) 0.6 % 11/23/22 06:04 PT 13.2 Seconds (9.0-12.0) H 11/22/22 20:35 INR 1.2 (0.9-1.1) H 11/22/22 20:35 APTT 45.0 Seconds (21.0-31.0) H* 11/22/22 20:35 PTT Ratio 1.6 11/22/22 20:35 D-Dimer 430 ug/L FEU (0-500) 11/22/22 20:35 Sodium 140 mmol/L (136-145) 11/23/22 06:04 Potassium 4.3 mmol/L (3.5-5.1) 11/23/22 06:04 Chloride 106 mmol/L (98-107) 11/23/22 06:04 Carbon Dioxide 30 mmol/L (21-32) 11/23/22 06:04 Anion Gap 4 (3-11) 11/23/22 06:04 BUN 19 mg/dl (6-23) 11/23/22 06:04 Creatinine 1.06 mg/dl (0.6-1.2) 11/23/22 06:04 Est Cr Clr Drug Dosing 54.3 ml/min 11/23/22 06:04 Est GFR ( Amer) 59.1 ml/min 11/23/22 06:04 Est GFR (Non-Af Amer) 51.0 ml/min 11/23/22 06:04 BUN/Creatinine Ratio 17.9 (10-20) 11/23/22 06:04 Glucose 104 mg/dl (70-99(Fasting)) H 11/23/22 06:04 Calcium 9.1 mg/dl (8.6-10.3) 11/23/22 06:04 Magnesium 1.8 mg/dl (1.7-2.4) 11/23/22 06:04 Total Bilirubin 0.6 mg/dl (0.2-1.0) 11/22/22 20:35 AST 12 U/L (13-39) L 11/22/22 20:35 ALT 10 U/L (7-52) 11/22/22 20:35 Alkaline Phosphatase 74 U/L (34-104) 11/22/22 20:35 Troponin I High Sens 6.3 pg/ml (0-14) 11/23/22 12:05 B-Natriuretic Peptide 536 pg/ml (0-100) H 11/22/22 20:35 Total Protein 6.7 gm/dl (6.0-8.3) 11/22/22 20:35 Albumin 3.9 gm/dl (3.4-5.0) 11/22/22 20:35 Globulin 2.8 gm/dl (2.5-4.0) 11/22/22 20:35 Albumin/Globulin Ratio 1.4 (0.9-2) 11/22/22 20:35 Lipase 14 U/L (11-82) 11/22/22 20:35 Adenovirus (PCR) Not Detected (NotDetected) 11/22/22 21:00 B. pertussis DNA (PCR) Not Detected (NotDetected) 11/22/22 21:00 B.parapertussis DNA PCR Not Detected (NotDetected) 11/22/22 21:00 C. pneumoniae DNA (PCR) Not Detected (NotDetected) 11/22/22 21:00 Coronavirus OC43 (PCR) Not Detected (NotDetected) 11/22/22 21:00 Coronavirus HKU1 (PCR) Not Detected (NotDetected) 11/22/22 21:00 Coronavirus 229E (PCR) Not Detected (NotDetected) 11/22/22 21:00 SARS-CoV-2 (PCR) Not Detected (NotDetected) 11/22/22 21:00 Coronavirus NL63 (PCR) Not Detected (NotDetected) 11/22/22 21:00 Human Metapneumovir PCR Not Detected (NotDetected) 11/22/22 21:00 Influenza Type A (PCR) Not Detected (NotDetected) 11/22/22 21:00 Influenza Type B (PCR) Not Detected (NotDetected) 11/22/22 21:00 M. pneumoniae (PCR) Not Detected (NotDetected) 11/22/22 21:00 Parainfluenza 1 (PCR) Not Detected (NotDetected) 11/22/22 21:00 Parainfluenza 2 (PCR) Not Detected (NotDetected) 11/22/22 21:00 Parainfluenza 3 (PCR) Not Detected (NotDetected) 11/22/22 21:00 Parainfluenza 4 (PCR) Not Detected (NotDetected) 11/22/22 21:00 RSV (PCR) Not Detected (NotDetected) 11/22/22 21:00 Entero/Rhino (PCR) Not Detected (NotDetected) 11/22/22 21:00 Impressions Chest X-Ray 11/22/22 20:55 SINGLE VIEW CHEST CLINICAL HISTORY: Atypical chest pain. FINDINGS: An AP, portable, upright chest radiograph is obtained. No prior studies are available for comparison at the time of dictation. The examination is degraded by portable technique and apical lordotic positioning. A 2-lead cardiac pacemaker is in place. The heart is enlarged noting atherosclerotic calcification of the thoracic aorta. The pulmonary vasculature is noncongested. Chronic interstitial thickening is similar to previous. There is bibasilar scarring/atelectasis. The lungs and pleural spaces are otherwise clear. No pneum othorax is seen. The skeletal structures are osteopenic. The bony thorax is grossly intact. IMPRESSION: 1. Cardiomegaly and cardiac pacemaker without radiographic evidence of congestive failure. 2. No airspace consolidation or large pleural effusion is identified. ACT 112: Negative or not required by law. Electronically signed by: Denys Moore M.D. 11/22/2022 10:16 PM (1) Acute CHF Heart failure type: unspecified Qualified Code(s): I50.9 - Heart failure, unspecified
--- NOTE | 2022-11-23 23:19 | Electrocardiogram Report ---
Test Reason : Blood Pressure : / mmHG Vent. Rate : 071 BPM Atrial Rate : 077 BPM P-R Int : 000 ms QRS Dur : 112 ms QT Int : 440 ms P-R-T Axes : 000 -35 090 degrees QTc Int : 478 ms Ventricular-paced rhythm Biventricular pacemaker detected Abnormal ECG No previous ECGs available Confirmed by Rudolph Zambrano ([id number]) on 11/23/2022 11:18:58 PM Referred By: REFERRED SELF Confirmed By:Rudolph Zambrano
[2022-11-24 07:16] LABS: Basophils # (auto) 0.02 K/uL (0-0.2); Basophils % (auto) 0.5 %; Eosinophils % (auto) 2.3 %; Hematocrit (blood only) 36.8 % (37.0-47.0); Hemoglobin 12.3 g/dl (12.0-16.0); Immature Granulocytes # (auto) 0.01 K/uL (0.01-0.20); Immature Granulocytes % (auto) 0.2 %; Lymphocytes # (auto) 1.32 K/uL (1.2-3.4); Lymphocytes % (auto) 30.1 %; Mean Corpuscular Hemoglobin 35.1 pg (25.0-34.0); Mean Corpuscular Hgb Conc 33.4 g/dL (32.0-36.0); Mean Corpuscular Volume 105.1 fL (80.0-100.0); Mean Platelet Volume 10.6 fL (9.4-12.4); Monocytes # (auto) 0.56 K/uL (0.11-0.59); Monocytes % (auto) 12.8 %; Neutrophils # (auto) 2.38 K/uL (1.40-6.50); Neutrophils % (auto) 54.1 %; Nucleated RBC # (auto) 0.02 K/uL (0-0.12); Nucleated RBC % (auto) 0.5 %; Platelet Count 196 K/uL (130-400); RDW Coefficient of Variation 14.3 % (11.5-14.5); RDW Standard Deviation 54.9 fL (36.4-46.3); White Blood Count 4.39 K/ul (4.8-10.8)
[2022-11-24 07:53] LABS: BUN Creatinine Ratio 16.9 (10-20); Calcium 9.7 mg/dl (8.6-10.3); Creatinine Clr Calc Pharmacy 45.2 ml/min; Est GFR (African American) 48.9 ml/min; Est GFR (Non-African American) 42.2 ml/min; Potassium 3.9 mmol/L (3.5-5.1)
[2022-11-24] MEDS ORDERED: FUROSEMIDE 40 MG/4 ML VIAL IV SCH ×2 (09:15)
[2022-11-24] MEDS: DABIGATRAN ETEXILATE 75 MG CAP PO SCH (09:36)
[2022-11-24] MEDS: LOSARTAN POTASSIUM 50 MG TAB PO SCH (09:38)
[2022-11-24] MEDS: carvediloL 25 MG TAB PO SCH ×2 (09:39→17:04)
--- NOTE | 2022-11-24 11:21 | Cardiology Progress Note ---
Date of Service November 24, 2022 Assessment & Plan (1) Acute heart failure with preserved ejection fraction: (2) Severe tricuspid regurgitation: (3) Pulmonary HTN: (4) Chronic atrial fibrillation: (5) Pulmonary fibrosis: Plan 77 year-old woman presenting with dyspnea and LE edema * ECHOcardiogram - mild LVH, LVEF 55%, Severe TR + Est PAP of 60 mmHg * Hx of Atrial fibrillation * Had been on Amiodarone - possibly complicated by pulmonary fibrosis * Pt is S/P Pacer * TR was felt to be either secondary to mechanical disruption from a pacemaker lead or secondary to Pulmonary Hypertension. * RV, however, is usually dilated in the setting of severe TR. * Patient has been diuresed over the course of this hospitalization * Approaching euvolemia Would: * Perform walking oximetry * Stop IV Lasix * Start Lasix 80 mg po per day * K+ goal 4.5-5 * Mag goal >2 * Continue Aldactone 25 mg po per day * Continue DOAC - hx of Afib * TR graded severe - TR warrants work up * TR work up would be involved in that we would have to differentiate from TR secondary to mechanical disruption from Pacer Lead (KIRA?) vs funcional (secondary to Pulm HTN) * Pulm HTN could be linked to her ILD - pt would need Chest CT * Pulm HTN work up can be extensive (HIV, ProBNP, RF, BLANCA, Chest CT, RUQ US, V/Q scan for CTEPH +/- CT PE Protocol + PFTs + Right Heart Cath) * Suggested that Pulm Htn work up be potentially led by her primary appliance sales associate in [facility]. * SBP at goal * Continue Losartan - consider QD dosing instead of bid - 100 mg po per day * Contineu Coreg 25 mg po BID - may need to adjust if patient actually has severe PH * Plans for Pacer interrogation * F/U with Cardiology in [facility] Admission and Anticipated Discharge Date Admission Date: November 22, 2022 Subjective Seen and examined at bedside. She continues to report shortness of breath at rest. Telemetry showed paced rhythm. Events overnight: None reported Review of Systems Review of Systems: All systems reviewed & are unremarkable except as noted in HPI & below Physical Exam Physical Exam: Pt in no acute distress JVP at the base of the neck Mild crackles at bases - may be secondary to IPF S1S2 very soft 2/6 systolic murmur No abdominal edema No LE edema Warm and perfused Results & Data Vital Signs (Past 12 Hours) Vital Signs Temp Pulse Pulse Resp BP Pulse Ox O2 Del Method 11/24/22 08:00 36.6 C 69 20 113/75 91 Room Air 11/24/22 07:20 70 11/24/22 03:12 36.5 C 74 18 122/82 90 Room Air 11/23/22 23:36 36.4 C L 70 18 124/84 90 Room Air Laboratory Results Cardiac Enzymes 11/23/22 Range/Units 12:05 Troponin I High Sens 6.3 (0-14) pg/ml CBC 11/24/22 Range/Units 06:43 WBC 4.39 L (4.8-10.8) K/ul RBC 3.50 L (4.20-5.40) M/uL Hgb 12.3 (12.0-16.0) g/dl Hct 36.8 L (37.0-47.0) % Plt Count 196 (130-400) K/uL Neut # (Auto) 2.38 (1.40-6.50) K/uL Lymph # (Auto) 1.32 (1.2-3.4) K/uL [place] # (Auto) 0.56 (0.11-0.59) K/uL Eos # (Auto) 0.10 (0-0.50) K/uL Baso # (Auto) 0.02 (0-0.2) K/uL Comprehensive Metabolic Panel 11/24/22 Range/Units 06:43 Sodium 139 (136-145) mmol/L Potassium 3.9 (3.5-5.1) mmol/L Chloride 99 (98-107) mmol/L Carbon Dioxide 36 H (21-32) mmol/L BUN 21 (6-23) mg/dl Creatinine 1.24 H (0.6-1.2) mg/dl Glucose 108 H (70-99(Fasting)) mg/dl Calcium 9.7 (8.6-10.3) mg/dl Intake and Output 11/23/22 11/24/22 11/24/22 22:59 06:59 14:59 Intake Total 450 / 450 Output Total 700 / 1925 1225 / 1925 Balance -700 / -1475 -775 / -1475 Intake: Oral 450 / 450 Output: Urine 700 / 1925 1225 / 1925 Other: Weight 92.9 kg Weight Measurement Method Standing Scale
[2022-11-24] MEDS ORDERED: SPIRONOLACTONE 25 MG TAB PO SCH (14:00)
--- NOTE | 2022-11-24 14:23 | Discharge Summary ---
Date of Service November 24, 2022 Admission HPI Per Admitting Provider 77-year-old female who lives in [facility] flew 1 week back to [employer] to her daughter's place with past medical significant for CHF, A-fib status post pacemaker, possible COPD, history of tobacco abuse, hypertension, history of pneumonia presents with shortness of breath. Patient since last 3 to 4 days she getting progressively short of breath even walking to her car making her short of breath which prompted her to come to the ER today. She has swelling in the legs chronically left greater than right and says no change in the swelling. General ambulates without any support. Denies any cough or f ever. Sometimes get runny nose. No sore throat. No headache. Feels slight dizziness. Vision is okay. No nausea or abdominal pain. Normal bowel and bladder movements. Currently resting comfortably and hemodynamically stable. Likes to be discharged tomorrow. Past medical history as mentioned above Past surgical history tonsillectomy, cataracts and pacemaker placement. Social history quit smoking 7 years ago. Drinks 1 to 2 glasses once daily. Family history father had CHF. Mother lived up to age more than 100 years. Admission Exam Per Admitting Provider General-Not in distress Head- atraumatic Eyes- PERRL ENT- oropharynx clear Neck- supple, no JVD, Lungs- clear to auscultation and percussion, mild bibasilar crackles Heart- regular rate and rhythm; no murmur, no gallop. Abdomen- normal bowel sounds, soft, nontender, no distension. Extremities- b/l lower extremity edema present more on left leg than right leg. No erythema seen. Neuro- alert, oriented x 3; PERRL no facial palsy; no dysarthria; insight ok, obeys commands moves extremities Skin- warm & dry Principal Diagnosis Acute on chronic diastolic heart failure Severe tricuspid regurgitation Discharge Exam Constitutional: WD/WN, vitals as above, NAD, sitting up in bed, pleasant, conversing easily Respiratory: Bilateral crackles improved. Cardiovascular: RRR, no murmur, no edema Vessels: no JVD or carotid bruit Chest: normal inspection of chest Abdomen: normal bowel sounds, soft, nontender, no hepatosplenomegaly Musculoskeletal: no cyanosis or clubbing, extremities motor strength 5/5. Pitting edema improved. Skin: no rashes, warm and dry normal turgor Neurologic: PERRL, EOMI, accommodation nl, no face palsy, no dysarthria CN's II- XI intact bilaterally and moves all extremities Psychiatric: A+Ox3, euthymic affect Discharge Data Allergies Allergy/AdvReac Type Severity Reaction Status Date / Time amiodarone Allergy Severe SHORTNESS Verified 11/22/22 20:39 OF BREATH lisinopril AdvReac Intermediate Cough Verified 11/22/22 20:39 Consultations 11/22/22 22:38 ED Decision to Admit Stat 11/23/22 00:35 Consult Cardiology Routine Hospital Course (1) Acute CHF: 77-year-old femal with past medical significant for CHF, A-fib status post pacemaker, hypertension presented with shortness of breath. She was found to have BNP of 536. Chest x-ray done in admission consistent with pulmonary edema. EKG shows ventricular paced rhythm. Echocardiogram was done which showed a EF of 60 to 65%. Severe tricuspid regurgitation. Estimated systolic pulmonary pressure of 60 mmHg. Dilated IVC. Cardiology was consulted; she was started on IV diuretic with Lasix 40 mg twice a day. Patient clinically improved with the diuretics. Two-step oxygen evaluation was done at discharge; she did not require any oxygen at rest or on exertion She was discharged on Lasix 40 mg twice daily as per recommended by cardiology. Patient to follow-up with her primary care doctor and cardiology as outpatient. Please note the above document was generated using voice recognition software. It may contain grammatical, syntax or spelling errors. Any formal questions or concerns about the content, text or information contained within the body of this dictation should be directly addressed to the provider for clarification Total Time Total Time Spent Total Time Spent (In Minutes): 45 Total Time Includes: Examination of the Patient, Discharge Planning, Medication Reconciliation, Communication With Other Providers and Other Discharge Plan Discharge Items Patient Disposition: Home - Self-Care Reason For Visit: SOB, CHF Discharge Diagnosis: Acute on chronic diastolic heart failure Activity: Resume your previous activity Non-emergency contact: Primary Care Provider Call non-emergency contact if: you have any medication questions and your symptoms worsen Follow-up/Referrals: Kaylan Matthews MD [Primary Care Provider] - Diet: Regular Addtl Attending Provider Instructions: You were admitted to the hospital with acute on chronic diastolic heart failure. You were treated with IV Lasix during the hospitalization. Echocardiogram was done; your ejection fraction was 60 to 65%. You were found to have severe tricuspid regurgitation with estimated systolic pulmonary pressure is 60 mmHg. You are prescribed Lasix 40 mg to be taken twice a day (one in the morning and one in the afternoon) till your weight is back to baseline. Please measure your weight daily. Take all other medication as prescribed before. Pending Studies at Discharge: No Stand-Alone Forms: My [facility], Smoking Cessation Medications and DC Order Prescriptions: Continued carvedilol 25 mg Tablet 25 mg PO BID Rx Instructions: must administer with a meal/food losartan 50 mg tablet 50 mg PO BID spironolactone 25 mg tablet 25 mg PO DAILY dabigatran etexilate [Pradaxa] 150 mg capsule 150 mg PO BID Changed furosemide 40 mg tablet 40 mg PO BID Qty: 30 0RF Discharge Orders: Discharge Order (Routine); Ordered 11/24/22 Ordered By: Deyvi Ward Admission Data Admit Date/Time: 11/22/22 23:45 Attending Provider: Deyvi Ward Admit Provider: Alonzo Avila Primary Care Provider: Kaylan Matthews Other Providers: Alonzo Avila ; Jaquan Hoang
== END 2022-11-24 17:30 | disposition home or self-care (01) | DRG 291 ==
LOC: ED 20:06 → EDINP 23:45 → 2S 11-23 00:36